=== PATIENT | male | born 1965 | race American Indian/Alaskan Native ===

== ENCOUNTER 2020-09-24 12:42 | Emergency (ER) | payer OTHER ==
--- NOTE | 2020-09-24 13:34 | Emergency Department Report ---
ED General Adult HPI - General Chief complaint: Urogenital-Male Stated complaint: BLOOD IN URINE Time Seen by Provider: 09/24/20 13:31 Source: patient Mode of arrival: Ambulatory Limitations: No Limitations - History of Present Illness Initial comments: Patient is a 55-year-old male who presents emergency room with complaints of hematuria that began yesterday. He denies any dysuria, urinary frequency, urinary urgency, penile discharge, pain or swelling in the testicles, abdominal pain, back pain, chest pain, shortness of breath, nausea, vomiting, diarrhea, fever. He states that he has a past medical history of hypertension and last saw a doctor 5 years ago but was not yet started on medication and was attempting lifestyle modifications but never followed back up. He has never been prescribed blood pressure medication. He denies any allergies to medications. Severity scale (0 -10): 0 - Related Data Previous Rx's Medication Instructions Recorded Last Taken Type Ciprofloxacin HCl [Ciprofloxacin 500 mg PO BID 7 Days #14 tab 09/24/20 Unknown Rx TAB] Losartan/Hydrochlorothiazide 1 each PO DAILY #30 tablet 09/24/20 Unknown Rx [Losartan-Hctz 50-12.5 mg Tab] Tamsulosin [Flomax] 0.4 mg PO QDAY #12 cap 09/24/20 Unknown Rx Allergies Allergy/AdvReac Type Severity Reaction Status Date / Time No Known Allergies Allergy Unverified 09/24/20 12:53 ED Review of Systems ROS: Stated complaint: BLOOD IN URINE Other details as noted in HPI Comment: All other systems reviewed and negative ED Past Medical Hx - Past Medical History Previous Medical History?: No - Surgical History Past Surgical History?: No - Social History Smoking Status: Never Smoker - Medications Home Medications: Home Medications Medication Instructions Recorded Confirmed Last Taken Type Ciprofloxacin HCl [Ciprofloxacin 500 mg PO BID 7 Days #14 tab 09/24/20 Unknown Rx TAB] Losartan/Hydrochlorothiazide 1 each PO DAILY #30 tablet 09/24/20 Unknown Rx [Losartan-Hctz 50-12.5 mg Tab] Tamsulosin [Flomax] 0.4 mg PO QDAY #12 cap 09/24/20 Unknown Rx ED Physical Exam - General Limitations: No Limitations General appearance: alert, in no apparent distress - Head Head exam: Present: atraumatic, normocephalic - Eye Eye exam: Present: normal appearance - ENT ENT exam: Present: mucous membranes moist - Respiratory Respiratory exam: Present: normal lung sounds bilaterally. Absent: respiratory distress, wheezes, rales, rhonchi, stridor, chest wall tenderness, accessory muscle use, decreased breath sounds, prolonged expiratory - Cardiovascular Cardiovascular Exam: Present: regular rate, normal rhythm, normal heart sounds. Absent: systolic murmur, diastolic murmur, rubs, gallop - GI/Abdominal GI/Abdominal exam: Present: soft, normal bowel sounds. Absent: distended, tenderness, guarding, rebound, rigid - Back Exam Back exam: Absent: CVA tenderness (R), CVA tenderness (L) - Neurological Exam Neurological exam: Present: alert, oriented X3 - Psychiatric Psychiatric exam: Present: normal affect, normal mood - Skin Skin exam: Present: warm, dry, intact ED Course Vital Signs 09/24/20 09/24/20 09/24/20 12:59 15:02 15:03 Temperature 97.8 F Pulse Rate 135 H 110 H Respiratory 19 18 Rate Blood Pressure 186/101 Blood Pressure 206/122 [Right] O2 Sat by Pulse 98 Oximetry ED Medical Decision Making - Lab Data Result diagrams: 09/24/20 13:20 09/24/20 13:20 Lab Results 09/24/20 09/24/20 09/24/20 Range/Units 13:20 13:20 13:32 WBC 9.6 (4.5-11.0) K/mm3 RBC 5.11 H (3.65-5.03) M/mm3 Hgb 15.0 (11.8-15.2) gm/dl Hct 43.3 (35.5-45.6) % MCV 85 (84-94) fl MCH 29 (28-32) pg MCHC 35 H (32-34) % RDW 14.4 (13.2-15.2) % Plt Count 255 (140-440) K/mm3 Lymph % (Auto) 16.2 (13.4-35.0) % [place] % (Auto) 8.1 H (0.0-7.3) % Eos % (Auto) 0.1 (0.0-4.3) % Baso % (Auto) 0.5 (0.0-1.8) % Lymph # (Auto) 1.5 (1.2-5.4) K/mm3 [place] # (Auto) 0.8 (0.0-0.8) K/mm3 Eos # (Auto) 0.0 (0.0-0.4) K/mm3 Baso # (Auto) 0.0 (0.0-0.1) K/mm3 Seg Neutrophils % 75.1 H (40.0-70.0) % Seg Neutrophils # 7.2 (1.8-7.7) K/mm3 Sodium 141 (137-145) mmol/L Potassium 3.8 (3.6-5.0) mmol/L Chloride 102.0 (98-107) mmol/L Carbon Dioxide 29 (22-30) mmol/L Anion Gap 14 mmol/L BUN 9 (9-20) mg/dL Creatinine 0.9 (0.8-1.3) mg/dL Estimated GFR > 60 ml/min BUN/Creatinine Ratio 10 % Glucose 149 H (75-100) mg/dL Calcium 9.3 (8.4-10.2) mg/dL Magnesium 2.00 (1.7-2.3) mg/dL Total Bilirubin 0.60 (0.1-1.2) mg/dL AST 25 (5-40) units/L ALT 36 (7-56) units/L Alkaline Phosphatase 66 (35-129) units/L Total Creatine Kinase 269 H (55-170) units/L Troponin T (0.00-0.029) ng/mL Total Protein 7.3 (6.3-8.2) g/dL Albumin 4.7 (3.9-5) g/dL Albumin/Globulin Ratio 1.8 % Urine Color (Yellow) Urine Turbidity (Clear) Urine pH (5.0-7.0) Ur Specific [place] (1.003-1.030) Urine Protein (Negative) mg/dL Urine Glucose (UA) (Negative) mg/dL Urine Ketones (Negative) mg/dL Urine Blood (Negative) Urine Nitrite (Negative) Urine Bilirubin (Negative) Urine Urobilinogen (<2.0) mg/dL Ur Leukocyte Esterase (Negative) Urine WBC (Auto) (0.0-6.0) /HPF Urine RBC (Auto) (0.0-6.0) /HPF Urine Mucus /HPF 09/24/20 09/24/20 Range/Units 14:33 16:27 WBC (4.5-11.0) K/mm3 RBC (3.65-5.03) M/mm3 Hgb (11.8-15.2) gm/dl Hct (35.5-45.6) % MCV (84-94) fl MCH (28-32) pg MCHC (32-34) % RDW (13.2-15.2) % Plt Count (140-440) K/mm3 Lymph % (Auto) (13.4-35.0) % [place] % (Auto) (0.0-7.3) % Eos % (Auto) (0.0-4.3) % Baso % (Auto) (0.0-1.8) % Lymph # (Auto) (1.2-5.4) K/mm3 [place] # (Auto) (0.0-0.8) K/mm3 Eos # (Auto) (0.0-0.4) K/mm3 Baso # (Auto) (0.0-0.1) K/mm3 Seg Neutrophils % (40.0-70.0) % Seg Neutrophils # (1.8-7.7) K/mm3 Sodium (137-145) mmol/L Potassium (3.6-5.0) mmol/L Chloride (98-107) mmol/L Carbon Dioxide (22-30) mmol/L Anion Gap mmol/L BUN (9-20) mg/dL Creatinine (0.8-1.3) mg/dL Estimated GFR ml/min BUN/Creatinine Ratio % Glucose (75-100) mg/dL Calcium (8.4-10.2) mg/dL Magnesium (1.7-2.3) mg/dL Total Bilirubin (0.1-1.2) mg/dL AST (5-40) units/L ALT (7-56) units/L Alkaline Phosphatase (35-129) units/L Total Creatine Kinase (55-170) units/L Troponin T < 0.010 (0.00-0.029) ng/mL Total Protein (6.3-8.2) g/dL Albumin (3.9-5) g/dL Albumin/Globulin Ratio % Urine Color Yellow (Yellow) Urine Turbidity Clear (Clear) Urine pH 6.0 (5.0-7.0) Ur Specific [place] 1.024 (1.003-1.030) Urine Protein 100 mg/dl (Negative) mg/dL Urine Glucose (UA) Neg (Negative) mg/dL Urine Ketones 20 (Negative) mg/dL Urine Blood Mod (Negative) Urine Nitrite Neg (Negative) Urine Bilirubin Neg (Negative) Urine Urobilinogen 2.0 (<2.0) mg/dL Ur Leukocyte Esterase Tr (Negative) Urine WBC (Auto) 12.0 H (0.0-6.0) /HPF Urine RBC (Auto) 121.0 (0.0-6.0) /HPF Urine Mucus 2+ /HPF Vital Signs 09/24/20 09/24/20 09/24/20 12:59 15:02 15:03 Temperature 97.8 F Pulse Rate 135 H 110 H Respiratory 19 18 Rate Blood Pressure 186/101 Blood Pressure 206/122 [Right] O2 Sat by Pulse 98 Oximetry - EKG Data EKG shows normal: sinus rhythm, axis, intervals, QRS complexes, ST-T waves Rate: tachycardia (101) - EKG Data 09/24/20 20:13 LAE no STEMI - Radiology Data Radiology results: report reviewed Ordering Physician: ACACIA CASTILLO Date of Service: 09/24/20 Procedure(s): CT abdomen pelvis wo con Accession Number(s): [id number] cc: ACACIA CASTILLO CT ABDOMEN AND PELVIS WITHOUT CONTRAST INDICATION: Generalized abdominal pain TECHNICAL: Multiple axial CT images of the abdomen and pelvis were acquired without intravenous contrast. Sagittal and coronal reformats were obtained. All CTs at this facility utilize dose reduction techniques including automated exposure control, iterative reconstruction and weight based dosing when appropriate to reduce patient radiation dose to as low as reasonable achievable. COMPARISON: None. FINDINGS: Limited imaging of the bilateral lung bases and straight no evidence of acute abnormality. ABDOMEN: There is moderately decreased attenuation throughout the hepatic parenchyma. The spleen, stomach, pancreas, bilateral adrenal glands and bilateral kidneys show no evidence of acute abnormality. The abdominal aorta is normal in caliber. There is no evidence of bowel obstruction or free fluid. PELVIS: The prostate gland is significantly enlarged measuring 8.5 x 6.0 cm. The urinary bladder appears normal. No free pelvic fluid is visualized. BONES AND SOFT TISSUES: Evaluation of bony structures demonstrates no evidence of acute bony abnormality. Soft tissue structures appear grossly normal. IMPRESSION: 1. No evidence of acute inflammatory or obstructive process within the abdomen or pelvis. 2. Moderate enlargement of the prostate. 3. Moderate hepatic steatosis. Signer Name: Kassandra Gay MD Signed: 09/24/2020 3:09 PM Workstation Name: [id number] Transcribed By: RICKI Dictated By: Kassandra Gay MD Electronically Authenticated By: Kassandra Gay MD Signed Date/Time: 09/24/20 1509 DD/ 1505 TD/TT: - Medical Decision Making Patient is a 55-year-old male who presents emergency room with complaints of hematuria that began yesterday. He denies any dysuria, urinary frequency, urinary urgency, penile discharge, pain or swelling in the testicles, abdominal pain, back pain, chest pain, shortness of breath, nausea, vomiting, diarrhea, fever. He states that he has a past medical history of hypertension and last saw a doctor 5 years ago but was not yet started on medication and was attempting lifestyle modifications but never followed back up. He has never been prescribed blood pressure medication. He denies any allergies to medications. Initial vitals with significantly elevated blood pressure which improved upon repeat. No abdominal tenderness or CVA tenderness on exam. Labs are stable. UA with many red blood cells, white blood cells. EKG with mild tachycardia at 101, left atrial enlargement, otherwise stable. CT abd pelvis without contrast: 1. No evidence of acute inflammatory or obstructive process within the abdomen or pelvis. 2. Moderate enlargement of the prostate. 3. Moderate hepatic steatosis. Discussed all results with patient and answered questions. Patient be referred to primary care doctor and urologist, discussed the importance of follow-up. Patient given prescription for ciprofloxacin, t amulosin, losartan HCTZ. advised pt Please take medication as prescribed. Increase your water intake. Eat a low-sodium diet. Incorporate 30 to 60 minutes of daily exercise. Follow-up with your primary care doctor. Follow-up with urologist. Return to emergency room immediately for any new or worsening symptoms. - Differential Diagnosis Nephrolithiasis, prostatitis, BPH, UTI, bladder mass, GRETCHEN, nephrotic syndro Critical care attestation.: If time is entered above; I have spent that time in minutes in the direct care of this critically ill patient, excluding procedure time. ED Disposition Clinical Impression: Enlarged prostate, Hypertensive urgency, Hepatic steatosis Hematuria Qualifiers: Hematuria type: unspecified type Qualified Code(s): R31.9 - Hematuria, unspecified UTI (urinary tract infection) Qualifiers: Urinary tract infection type: acute cystitis Hematuria presence: with hematuria Qualified Code(s): N30.01 - Acute cystitis with hematuria Disposition: TO HOME OR SELFCARE Is pt being admited?: No Does the pt Need Aspirin: No Condition: Stable Instructions: Benign Prostatic Hyperplasia, Urinary Tract Infection, Adult, [id number], Managing Your Hypertension, Hypertension, Adult, Hematuria, Adult Additional Instructions: Please take medication as prescribed. Increase your water intake. Eat a low- sodium diet. Incorporate 30 to 60 minutes of daily exercise. Follow-up with your primary care doctor. Follow-up with urologist. Return to emergency room immediately for any new or worsening symptoms. Prescriptions: Ciprofloxacin HCl [Ciprofloxacin TAB] 500 mg PO BID 7 Days #14 tab Tamsulosin [Flomax] 0.4 mg PO QDAY #12 cap Losartan/Hydrochlorothiazide [Losartan-Hctz 50-12.5 mg Tab] 1 each PO DAILY #30 tablet Referrals: ARTHUR THOMAS MD [Staff Physician] - 3-[address] [facility] [Provider Group] - 3-5 Days [facility], [LAB/CONTRACT] - 3-5 Days FLOYD CONRAD MD [Staff Physician] - 3-5 Days PRIMARY MD RAMYA [Primary Care Provider] - 3-5 Days Time of Disposition: 17:04 Print Language: KYRGYZ
[2020-09-24 13:48] LABS: Basophils % (Auto) 0.5 % (0.0-1.8); Eosinophils % (Auto) 0.1 % (0.0-4.3); Hematocrit 43.3 % (35.5-45.6); Lymphocytes # (Auto) 1.5 K/mm3 (1.2-5.4); Lymphocytes % (Auto) 16.2 % (13.4-35.0); Mean Corpuscular HGB Conc 35 % (32-34); Mean Corpuscular Volume 85 fl (84-94); Monocytes # (Auto) 0.8 K/mm3 (0.0-0.8); Monocytes % (Auto) 8.1 % (0.0-7.3); Platelet Count 255 K/mm3 (140-440); Red Blood Count 5.11 M/mm3 (3.65-5.03); Red Cell Distribution Width 14.4 % (13.2-15.2)
[2020-09-24 14:06] LABS: Alanine Aminotransferase 36 units/L (7-56); Albumin 4.7 g/dL (3.9-5); BUN/Creatinine Ratio 10; Blood Urea Nitrogen 9 mg/dL (9-20); Calcium 9.3 mg/dL (8.4-10.2); Hemolysis Index 9
[2020-09-24 15:03] VITALS: BP 186/101
--- NOTE | 2020-09-24 15:14 | Cat Scan Report ---
CT ABDOMEN AND PELVIS WITHOUT CONTRAST INDICATION: Generalized abdominal pain TECHNICAL: Multiple axial CT images of the abdomen and pelvis were acquired without intravenous contr ast. Sagittal and coronal reformats were obtained. All CTs at this facility utilize dose reduction techniques including automated exposure control, iterative reconstruction and weight based dosing whe n appropriate to reduce patient radiation dose to as low as reasonable achievable. COMPARISON: None. FINDINGS: Limited imaging of the bilateral lung bases and straight no evidence of acute abnormality. ABDOMEN: There is moderately decreased attenuation throughout the hepatic parenchyma. The spleen, stomach, cor[place] creas, bilateral adrenal glands and bilateral kidneys show no evidence of acute abnormality. The abdo charan aorta is normal in caliber. There is no evidence of bowel obstruction or free fluid. PELVIS: The prostate gland is significantly enlarged measuring 8.5 x 6.0 cm. The urinary bladder appears norm al. No free pelvic fluid is visualized. BONES AND SOFT TISSUES: Evaluation of bony structures demonstrates no evidence of acute bony abnormal ity. Soft tissue structures appear grossly normal. IMPRESSION: 1. No evidence of acute inflammatory or obstructive process within the abdomen or pelvis. 2. Moderate enlargement of the prostate. 3. Moderate hepatic steatosis. Signer Name: Kassandra Gay MD Signed: 09/24/2020 3:09 PM Workstation Name: [id number]
[2020-09-24 16:44] LABS: Bilirubin,Urine NEG (Negative); Blood,Urine MOD (Negative); Color,Urine Yellow (Yellow); Mucus,Urine 2+ /HPF
== END 2020-09-24 17:37 | disposition home or self-care (01) ==
LOC: ED 12:42
DX: K76.0 Fatty (change of) liver, not elsewhere classified (principal); N39.0 Urinary tract infection, site not specified; R31.9 Hematuria, unspecified; N40.0 Benign prostatic hyperplasia without lower urinary tract symptoms; I10 Essential (primary) hypertension; Z79.1 Long term (current) use of non-steroidal anti-inflammatories (NSAID); Z79.899 Other long term (current) drug therapy
CPT/HCPCS: 36415; 74176; 80053; 81001; 82550; 83735; 84484; 85025; 87086; 93005